=== PATIENT | female | born 1970 | race Caucasian/White ===

== ENCOUNTER → 2016-02-27 | Outpatient (CLI) | payer OTHER ==
[~2016-02-27] MED LIST: PERCOCET 325 MG1 TA5 PO; ZOLOFT50 MG
== END | disposition home or self-care (01) ==
LOC: LAB 10:09 → RAD 10:09
DX: M53.3 Sacrococcygeal disorders, not elsewhere classified (principal); M25.551 Pain in right hip; M54.5 Low back pain

== ENCOUNTER → 2016-12-17 | Outpatient (CLI) | payer OTHER | END | disposition home or self-care (01) | LOC: MAMMO 12-01 16:00 | DX: Z12.31 Encounter for screening mammogram for malignant neoplasm of breast (principal) ==

== ENCOUNTER → 2017-01-01 | Outpatient (CLI) | payer OTHER | END | disposition home or self-care (01) | LOC: MAMMO 12-30 11:00 → US 01-06 11:00 | DX: R92.8 Other abnormal and inconclusive findings on diagnostic imaging of breast (principal) ==

== ENCOUNTER 2017-06-11 09:27 | Inpatient (IN) | payer OTHER ==
[~2017-06-11] VITALS: Ht 165.1 cm; Wt 111.1 kg
[2017-06-11] VITALS (8 sets, daily range): BP systolic 101–153; BP diastolic 72–94
[~2017-06-11 09:27] MED LIST changes: -ZOLOFT50 MG; +ZOLOFT50 MG PO
[2017-06-11 09:56] LABS: BASO % 0.1 % (0.0-1.0); EOS # 0.1 10*3/uL (0.0-0.4); EOS % 0.9 % (1.0-4.0); HEMATOCRIT 44.8 % (37.0-47.0); HEMOGLOBIN 14.8 g/dl (12.0-16.0); LYMPH # 2.1 10*3/uL (1.3-4.4); LYMPH % 27.8 % (27.0-41.0); MEAN CELL VOLUME 86.5 fl (81.0-99.0); MEAN CORPUSCULAR HGB 28.6 pg (27.0-31.0); MEAN PLATELET VOLUME 9.4 fl (9.6-12.3); MONO # 0.5 10*3/uL (0.1-1.0); MONO % 6.1 % (3.0-9.0); NEUT % 64.7 % (47.0-73.0); PLATELET COUNT AUTOMATED 337 10*3/uL (130-400); RED BLOOD COUNT 5.18 10*6/uL (4.10-5.10); RED CELL DISTRI WIDTH 12.8 % (0-14.5); WHITE BLOOD COUNT 7.7 10*3/uL (4.8-10.8)
[2017-06-11 10:04] LABS: ACT PARTIAL THROMBO TIME 21.9 SECONDS (20.8-31.5); INTERNATIONAL NORM RATIO 0.9 (2.0-3.5)
[2017-06-11 10:14] LABS: ALKALINE PHOSPHATASE 74 U/L (45-117); BUN 10 mg/dl (7-24); CHLORIDE 102 mmol/L (98-107); CREATININE 0.81 mg/dL (0.55-1.02); POTASSIUM 4.6 mmol/L (3.5-5.1); SGOT/AST 15 IU/L (3-35); SGPT/ALT 21 U/L (12-78); SODIUM 136 mmol/L (136-145); TOTAL PROTEIN 7.8 gm/dL (6.4-8.2)
[2017-06-11 10:19] LABS: THYROID STIM HORMONE (HS) 1.74 uIU/ml (0.358-4.75)
== END 2017-06-11 16:00 | disposition short-term general hospital (02) | DRG 282 ==
LOC: ED 09:27 → EDHOLD 10:30 → 5E 10:56 → ICCU 14:23
PROVIDERS: Nurse Practitioner Family
DX: I21.4 Non-ST elevation (NSTEMI) myocardial infarction (principal); E66.01 Morbid (severe) obesity due to excess calories; I10 Essential (primary) hypertension; E55.9 Vitamin D deficiency, unspecified; F41.1 Generalized anxiety disorder; E78.5 Hyperlipidemia, unspecified; R73.9 Hyperglycemia, unspecified; E83.41 Hypermagnesemia; E80.6 Other disorders of bilirubin metabolism; K21.9 Gastro-esophageal reflux disease without esophagitis; Z98.51 Tubal ligation status; Z82.49 Family history of ischemic heart disease and other diseases of the circulatory system; Z88.0 Allergy status to penicillin; Z79.899 Other long term (current) drug therapy; Z83.3 Family history of diabetes mellitus

== ENCOUNTER 2018-04-06 14:28 | Inpatient (IN) | payer OTHER ==
--- NOTE | ~2018-04-06 | CON ---
[place], [place] REPORT OF CONSULTATION NAME[id number] #: [id number] ROOM: 531 DOCTOR: ANGI CAMPBELL [facility] [place],JAIME BIRTHDATE: [birth year] DOS: 04/07/2018 HISTORY OF PRESENT ILLNESS: The patient came into the emergency with precordial chest heaviness. The patient has a cardiac catheterization was done in 05/2017, elevated cardiac enzymes. No critical obstructive flow murmur is noted at that time. The patient has history of hypertension, hyperglycemia, dyslipidemia and obesity. The patient has has renal stent and tubal ligation. ALLERGIC TO PENICILLIN. PHYSICAL EXAMINATION: VITAL SIGNS: Stable. Blood pressure 150/74. GENERAL: Alert, not in any acute distress. NECK: No jugular venous distention. No carotid bruits. LUNGS: No rales. HEART: S1, S2 regular. No gallops. ABDOMEN: Soft. SKIN: Color is not diaphoretic. EXTREMITIES: No cyanosis. Troponin is unremarkable. EKG, no acute changes. DIAGNOSIS: Chest pain, evaluating for ischemic heart disease. PLAN: Stress Cardiolite to evaluate for myocardial ischemia. Continue current management. His stress echocardiogram unremarkable, we will follow the patient outpatient. If the stress Cardiolite is abnormal, may consider further evaluation. Review the stress Cardiolite and forward the results. JAIME WHITLEY MD CM:CONSTR:REPORT OF CONSULTATION 1140 04/25/18 0846 interface
--- NOTE | ~2018-04-06 | EKG ---
[place], [place] ELECTROCARDIOGRAM REPORT NAME: NAYELI MENDEZ UNIT #: [id number] ROOM: 531 DOCTOR: HARDEEP DRAFT REPORT BIRTHDATE: [birth year] [facility] Test Date: 2018-04-06 Test Time: 20:16:51 Pat Name: NAYELI MENDEZ Department: Room: 531 Gender: F Casting Chipper: Melanie Ledesma : 1970 Requested By: RICHARD VERNON PA-C Order Number: [id number] Reading MD: Arely Emmanuel Measurements Intervals [place] Rate: 64 P: 23 VT: 168 QRS: 2 QRSD: 92 T: 17 QT: 407 QTc: 420 Interpretive Statements Sinus rhythm No previous ECG available for comparison Electronically Signed On 04-08-2018 12:45:05 PST by Arely Emmanuel CM:EKGRPT:ELECTROCARDIOGRAM REPORT 15 1245 RICHARD VERNON PA-C EPIPHANY DRAFT REPORT RICHARD VERNON PA-C
--- NOTE | ~2018-04-06 | EKG ---
[place], [place] ELECTROCARDIOGRAM REPORT NAME: NAYELI MENDEZ UNIT #: [id number] ROOM: 531 DOCTOR: HARDEEP DRAFT REPORT BIRTHDATE: [birth year] [facility] Test Date: 2018-04-06 Test Time: 17:56:24 Pat Name: NAYELI MENDEZ Department: Room: 531 Gender: F Bellows Tester: Melanie Ledesma : 1970 Requested By: RICHARD VERNON PA-C Order Number: [id number] Reading MD: Arely Emmanuel Measurements Intervals [place] Rate: 53 P: 21 NH: 148 QRS: -11 QRSD: 100 T: 24 QT: 430 QTc: 404 Interpretive Statements Sinus rhythm Ventricular premature complex Baseline wander in lead(s) V1 No previous ECG available for comparison Electronically Signed On 04-08-2018 12:44:46 PST by Arely Emmanuel CM:EKGRPT:ELECTROCARDIOGRAM REPORT [id number] 1244 RICHARD VERNON PA-C EPIPHTAMICA DRAFT REPORT RICHARD VERNON PA-C
--- NOTE | ~2018-04-06 | EKG ---
[place], [place] ELECTROCARDIOGRAM REPORT NAME: NAYELI MENDEZ UNIT #: [id number] ROOM: 531 DOCTOR: HARDEEP DRAFT REPORT BIRTHDATE: [birth year] [facility] Test Date: 2018-04-06 Test Time: 14:28:18 Pat Name: NAYELI MENDEZ Department: Room: 531 Gender: F Strategic Manager: Melanie Ledesma : 1970 Requested By: RICHARD VERNON PA-C Order Number: [id number] Reading MD: Arely Emmanuel Measurements Intervals [place] Rate: 84 P: 31 MO: 154 QRS: -11 QRSD: 89 T: 18 QT: 359 QTc: 425 Interpretive Statements Sinus rhythm No previous ECG available for comparison Electronically Signed On 04-08-2018 12:43:17 PST by Arely Emmanuel CM:EKGRPT:ELECTROCARDIOGRAM REPORT 1428 1243 RICHARD VERNON PA-C EPIPHANY DRAFT REPORT RICHARD VERNON PA-C
--- NOTE | ~2018-04-06 | ST ---
[place], [place] EXERCISE STRESS TEST REPORT NAME: NAYELI MENDEZ UNIT #: [id number] ROOM: 531 DOCTOR: ANGI CAMPBELL [facility],JAIME BIRTHDATE: [birth year] DOS: 04/07/2018 STRESS CARDIOLITE The patient underwent stress test on stage 2 Ayaz 5-7 METS and up to maximal exercise heart rate of 156. No ischemia seen with EKG. X-ray is made after injecting the isotope. No complication noted. Myocardial perfusion scan to follow. Stress electrocardiogram within normal limits. The patient is minimally deconditioned. JAIME WHITLEY MD CM:STRESS:EXERCISE STRESS TEST REPORT 1133 1216 JAIME WHITLEY MD [facility]
[2018-04-06 14:34] VITALS: BP 115/75
[2018-04-06] MEDS ORDERED: Lopressor25 MG PO (14:53)
[2018-04-06] MEDS ORDERED: ASPIRIN81 M1 PO (14:53)
--- NOTE | 2018-04-06 15:12 | NUR ---
LABS JUST DRAWN AT THIS TIME.
[2018-04-06 15:28] VITALS: BP 150/74
[2018-04-06 15:33] LABS: BASO % 0.3 % (0.0-1.0); EOS # 0.1 10*3/uL (0.0-0.4); HEMATOCRIT 40.5 % (37.0-47.0); HEMOGLOBIN 13.4 g/dl (12.0-16.0); LYMPH # 2.5 10*3/uL (1.3-4.4); LYMPH % 30.8 % (27.0-41.0); MEAN CELL VOLUME 88.4 fl (81.0-99.0); MEAN CORPUSCULAR HGB 29.3 pg (27.0-31.0); MEAN CORPUSCULAR HGB CONC 33.1 g/dl (33.0-37.0); MEAN PLATELET VOLUME 9.6 fl (9.6-12.3); MONO # 0.4 10*3/uL (0.1-1.0); NEUT % 62.4 % (47.0-73.0); PLATELET COUNT AUTOMATED 322 10*3/uL (130-400); RED BLOOD COUNT 4.58 10*6/uL (4.10-5.10); RED CELL DISTRI WIDTH 12.3 % (0-14.5)
[2018-04-06 15:47] LABS: ACT PARTIAL THROMBO TIME 24.8 SECONDS (20.8-31.5); INTERNATIONAL NORM RATIO 0.9 (2.0-3.5)
[2018-04-06 15:51] LABS: ALBUMIN 3.5 gm/dl (3.1-4.5); ALKALINE PHOSPHATASE 68 U/L (45-117); BUN 10 mg/dl (7-24); CHLORIDE 105 mmol/L (98-107); CREATININE 0.69 mg/dL (0.55-1.02); SGOT/AST 12 IU/L (3-35); SGPT/ALT 19 U/L (12-78); SODIUM 138 mmol/L (136-145); TOTAL PROTEIN 6.7 gm/dL (6.4-8.2)
[2018-04-06 15:55] LABS: TROPONIN I < 0.015 ng/ml (<0.045)
[2018-04-06 16:29] VITALS: BP 129/74
[2018-04-06 17:00] VITALS: BP 133/86
--- NOTE | 2018-04-06 17:00 | NUR ---
A 47, admitted to , under the services of JACKIE Ayala DO with a diagnosis of CHEST PAIN. Chief complaint is HEAVINESS IN CHEST, TIRED.. Patient arrived via bed from ER. Monitor applied. Initial assessment completed. Vital signs taken and recorded. JACKIE AYALA DO notified of admission to the unit. Orders received. See assessment for past medical history, medications and allergies. Patient and/or family oriented to unit. [facility] visitation policy reviewed. Clothing/patient valuable form completed. JAYA PACKER
--- NOTE | 2018-04-06 17:39 | NUR ---
DR. WHITLEY ANSWERING SERVICE CALLED REGARDING CONSULT. THEY WILL PAGE HIM.
--- NOTE | 2018-04-06 18:04 | NUR ---
CALLED DR. WHITLEY ANSWERING SERVICE AGAIN FOR CONSULT. DR. WHITLEY CALLED AND WE WAS IN A RAPID RESPONSE AND WASN'T ABLE TO GET TO THE PHONE. THEY WILL REPAGE HIM.
--- NOTE | 2018-04-06 18:12 | NUR ---
MEDICATED WITH PRN PO TYLENOL FOR HEADACHE.
--- NOTE | 2018-04-06 18:40 | NUR ---
DR. WHITLEY CALLED. PT TO HAVE LEXISCAN STRESS IN AM AND ECHO'.
[2018-04-06 20:00] VITALS: BP 121/70
--- NOTE | 2018-04-06 20:53 | NUR ---
24 HR chart check completed.
--- NOTE | 2018-04-06 21:30 | NUR ---
RESTING IN BED WITH NO ACUTE DISTRESS NOTED. RESPIRATINS EASY. LUNGS DIMINISHED, CLEAR. PULSE OX 98% RA. NPO STATUS DISCUSSED AFTER MIDNIGHT FOR STRESS TEST IN AM, VOICES UNDERSTANDING. CALL LIGHT WITHIN REACH
--- NOTE | 2018-04-06 22:00 | NUR ---
PATIENT C/O HEADACHE RATING A 6 UNRELIVED BY EARLIER TYLENOL. OFFERED MOPRHINE, DECLINES. PATIENT REQUESTING "SOMETHING BETWEEN TYLENOL AND TYLENOL." STATES SHE TAKES MOTRIN [address] HERNÁNDEZ CONTACTED AND INFORMED, ALSO MADE AWARE HOME MEDS UP TO DATE BUT NOT ORDERED
[2018-04-06] MEDS ORDERED: IBU800 MG PO (22:02)
--- NOTE | 2018-04-06 22:18 | NUR ---
MEDICATED WITH MOTRIN 1 TIME DOSE FOR COMPLAINTS OF HEADACHE RATING A 6. CALL LIGHT WITHIN REACH. WILL MONITOR FOR EFFECTIVENESS
--- NOTE | 2018-04-06 23:30 | NUR ---
MEDS EFFECTIVE. SLEEPING. RESPIRATIONS EASY. CALL LIGHT WITHIN REACH
[2018-04-07] VITALS: BP 119/75
--- NOTE | 2018-04-07 00:30 | NUR ---
SLEEPING. RESPIRATIONS EASY. VSS. CALL LIGHT WITHIN REACH. NPO FOR STRESS TEST
--- NOTE | 2018-04-07 06:00 | NUR ---
AWAKE, WATCHING TV. NO DISTRESS NOTED. RESPIRATIONS EASY. HR REMAINS 50-60'S, NO C/O CHEST PAIN. CALL LIGHT WITHIN REACH. NO VOICED COMPLAINTS. NPO STATUS MAINTAINED FOR TESTING THIS AM
[2018-04-07 06:26] LABS: BASO % 0.2 % (0.0-1.0); EOS # 0.1 10*3/uL (0.0-0.4); HEMATOCRIT 40.2 % (37.0-47.0); HEMOGLOBIN 12.7 g/dl (12.0-16.0); LYMPH # 2.9 10*3/uL (1.3-4.4); LYMPH % 46.6 % (27.0-41.0); MEAN CELL VOLUME 89.1 fl (81.0-99.0); MEAN CORPUSCULAR HGB 28.2 pg (27.0-31.0); MEAN CORPUSCULAR HGB CONC 31.6 g/dl (33.0-37.0); MEAN PLATELET VOLUME 9.6 fl (9.6-12.3); MONO # 0.4 10*3/uL (0.1-1.0); MONO % 6.7 % (3.0-9.0); NEUT # 2.7 10*3/uL (2.3-7.9); NEUT % 44.2 % (47.0-73.0); PLATELET COUNT AUTOMATED 308 10*3/uL (130-400); RED BLOOD COUNT 4.51 10*6/uL (4.10-5.10); RED CELL DISTRI WIDTH 12.3 % (0-14.5); WHITE BLOOD COUNT 6.1 10*3/uL (4.8-10.8)
[2018-04-07 06:42] LABS: ALBUMIN 3.1 gm/dl (3.1-4.5); ALKALINE PHOSPHATASE 64 U/L (45-117); BUN 16 mg/dl (7-24); CHLORIDE 108 mmol/L (98-107); CHOLESTEROL 193 mg/dL (<200); CREATININE 0.59 mg/dL (0.55-1.02); FREE T4 0.93 ng/dl (0.76-1.46); HDL CHOLESTEROL 47 mg/dl (40-60); LDL CHOLESTEROL 109 mg/dL (9-159); POTASSIUM 3.9 mmol/L (3.5-5.1); SGOT/AST 11 IU/L (3-35); SGPT/ALT 18 U/L (12-78); SODIUM 141 mmol/L (136-145); TOTAL PROTEIN 6.5 gm/dL (6.4-8.2); TRIGLYCERIDES 183 mg/dl (<150); VLDL CHOLESTEROL 37 mg/dL (6-40)
[2018-04-07 07:21] VITALS: BP 127/60
[2018-04-07 07:25] VITALS: BP 112/68
--- NOTE | 2018-04-07 07:45 | NUR ---
PT RESTING IN BED. RESP-EASY AND REGULAR. NO C/O AT THIS TIME. PT IS NPO FOR STRESS TEST THIS AM. CALL LIGHT IN REACH. SEE SHIFT ASSESSMENT.
[2018-04-07 08:57] LABS: VITAMIN D, 25-HYDROXY 33.4 ng/mL (30-100)
--- NOTE | 2018-04-07 10:00 | NUR ---
INFORMED CONSENT OBTAINED FOR EXERCISE CARDIOLITE STRESS TEST WITH DR. WHITLEY. RESTING EKG NSR WITH A SUPINE HT RT OF 59 AND A BP OF 128/78. HR RT OF 84 WITH A BP OF 124/65 IN A STANDING POSITION. PT COMPLETED 6:20 OF A LOS PROTOCOL WITH COMPLETION OF 3:00 MINUTES OF STAGE II. AT 2.5 MPH AND 12% GRADE. REACHED A MAX HT RT OF 158 WHICH IS 91% OF PREDECITED MAX WITH A PEAK BP OF 148/78. TEST TERMINATED DUE TO FATIGUE. HAD NO CHEST PAIN. EXERCISE TOLERANCE FAIR. LAST RECOVERY HT RT OF 112 WITH A BP OF 130/72. AWAITING SCANNING IN STABLE CONDITION.
--- NOTE | 2018-04-07 11:00 | NUR ---
PT OFF THE FLOOR FOR STRESS TEST.
--- NOTE | 2018-04-07 11:21 | NUR ---
Processing Specialist in to talk to patient. Patient states lives at HOME with . There are 12 steps in the home. Physician: RAISA MCMILLAN Pharmacy: [facility] Home health services: NONE Patient's level of ADLs: INDEPENDENT Patient has working utilities: YES DME: NONE Follow-up physician's appointment after d/c: WILL BE MADE BY HOSPITALIST NURSE DIRECTOR ON DISCHARGE Does patient want to access PORTAL?: NO Discharge plan PT LIVES AT HOME WITH HER AND SON AND HAS NO NEEDS ON DISCHARGE. PT STATES SHE IS INDEDPENDENT IN HER CARE. PT CAN BE DISCHARGED TO HOME WHEN MEDICALLY STABLE. WILL CONTINUE TO FOLLOW.. PERI COREAS
[2018-04-07 12:00] VITALS: BP 118/71
--- NOTE | 2018-04-07 13:30 | NUR ---
RESTING IN BED. NO C/O AT THIS TIME. CALL LIGHT IN REACH.
--- NOTE | 2018-04-07 16:00 | NUR ---
RESTING IN BED. WAITING TO GO HOME PER PT. CALL LIGHT IN REACH. NO C/O AT THIS TIME.
--- NOTE | 2018-04-07 17:14 | NUR ---
Discharge instructions reviewed with patient/family. Patient receptive and verbalizes understanding. Follow-up care arranged. Written instructions given to patient/family. HEPLOCK REMOVED 2X2 APPLIED. JAYA PACKER
--- NOTE | 2018-04-07 17:15 | NUR ---
DR. WHITLEY CALLED BACK OK TO DISCHARGE AND MAKE FOLLOW UP APPOINTMENT 1 -2 WEEKS.
== END 2018-04-07 17:15 | disposition home or self-care (01) | DRG 313 ==
LOC: ED 14:28 → 5E 16:24 → EDHOLD 16:24 → 5E 16:30
PROVIDERS: Physician Assistant; Registered Nurse; ADMIT Internal Medicine
PROC: 4A02XM4 Measurement of Cardiac Total Activity, External Approach (ICD-10-PCS; principal; 2018-04-07)
PROC: 3E073KZ Introduction of Other Diagnostic Substance into Coronary Artery, Percutaneous Approach (ICD-10-PCS; principal; 2018-04-07)
DX: R07.89 Other chest pain (principal); E44.0 Moderate protein-calorie malnutrition; I10 Essential (primary) hypertension; F41.1 Generalized anxiety disorder; E78.2 Mixed hyperlipidemia; E80.6 Other disorders of bilirubin metabolism; E66.01 Morbid (severe) obesity due to excess calories; E55.9 Vitamin D deficiency, unspecified; E78.5 Hyperlipidemia, unspecified; R73.9 Hyperglycemia, unspecified; Z88.0 Allergy status to penicillin; Z82.49 Family history of ischemic heart disease and other diseases of the circulatory system; Z83.3 Family history of diabetes mellitus; I25.2 Old myocardial infarction; Z79.82 Long term (current) use of aspirin; Z68.38 Body mass index [BMI] 38.0-38.9, adult

== ENCOUNTER 2019-01-14 23:48 | Emergency (ER) | payer OTHER ==
[~2019-01-14] VITALS: Ht 160 cm; Wt 95.3 kg
[~2019-01-14 23:48] MED LIST changes: +ASPIRIN81 M1 PO; +IBU800 MG PO; +Lopressor25 MG PO
[2019-01-14] MEDS ORDERED: NITROGLYCERIN0.4 MG SL (23:53)
[2019-01-14] MEDS ORDERED: PRAVASTATIN SOD40 MG PO (23:53)
[2019-01-14 23:54] VITALS: BP 133/86
[2019-01-15] MEDS ORDERED: Percocet 325 MG1 TAB PO (01:25)
[2019-01-15] MEDS ORDERED: Motrin,Rufen800 MG PO (01:25)
== END 2019-01-15 01:46 | disposition home or self-care (01) ==
LOC: ED 23:48
DX: S20.211A Contusion of right front wall of thorax, initial encounter (principal); I10 Essential (primary) hypertension; E66.01 Morbid (severe) obesity due to excess calories; E78.5 Hyperlipidemia, unspecified; I25.2 Old myocardial infarction; Z88.0 Allergy status to penicillin; Z79.899 Other long term (current) drug therapy; Z79.82 Long term (current) use of aspirin; W22.8XXA Striking against or struck by other objects, initial encounter; Y93.89 Activity, other specified; Y92.89 Other specified places as the place of occurrence of the external cause; Y99.8 Other external cause status

== ENCOUNTER → 2019-04-23 | Outpatient (CLI) | payer OTHER ==
[~2019-04-23] MED LIST changes: +Motrin,Rufen800 MG PO; +NITROGLYCERIN0.4 MG SL; +PRAVASTATIN SOD40 MG PO; +Percocet 325 MG1 TAB PO
[2019-04-23 09:54] LABS: BASO % 0.3 % (0.0-1.0); EOS # 0.1 10*3/uL (0.0-0.4); EOS % 1.5 % (1.0-4.0); HEMATOCRIT 42.4 % (37.0-47.0); HEMOGLOBIN 13.9 g/dl (12.0-16.0); LYMPH # 2.7 10*3/uL (1.3-4.4); MEAN CELL VOLUME 87.6 fl (81.0-99.0); MEAN CORPUSCULAR HGB 28.7 pg (27.0-31.0); MEAN CORPUSCULAR HGB CONC 32.8 g/dl (33.0-37.0); MEAN PLATELET VOLUME 9.4 fl (9.6-12.3); MONO # 0.5 10*3/uL (0.1-1.0); MONO % 5.7 % (3.0-9.0); NEUT # 4.6 10*3/uL (2.3-7.9); NEUT % 58.1 % (47.0-73.0); PLATELET COUNT AUTOMATED 347 10*3/uL (130-400); RED BLOOD COUNT 4.84 10*6/uL (4.10-5.10); RED CELL DISTRI WIDTH 12.6 % (0-14.5); WHITE BLOOD COUNT 7.9 10*3/uL (4.8-10.8)
[2019-04-23 10:22] LABS: BUN 13 mg/dl (7-24); CHLORIDE 109 mmol/L (98-107); CHOLESTEROL 189 mg/dL (<200); CREATININE 0.94 mg/dL (0.55-1.02); HDL CHOLESTEROL 62 mg/dl (40-60); LDL CHOLESTEROL 102 mg/dL (9-159); POTASSIUM 4.1 mmol/L (3.5-5.1); SGOT/AST 11 IU/L (3-35); SGPT/ALT 18 U/L (12-78); SODIUM 140 mmol/L (136-145); TRIGLYCERIDES 123 mg/dl (<150); VLDL CHOLESTEROL 25 mg/dL (6-40)
== END | disposition home or self-care (01) ==
LOC: LAB 09:23
PROVIDERS: Internal Medicine Cardiovascular Disease
DX: E78.5 Hyperlipidemia, unspecified (principal)

== ENCOUNTER 2021-03-26 08:47 | Emergency (ER) | payer OTHER ==
[~2021-03-26] VITALS: Wt 99.8 kg
[2021-03-26 08:57] VITALS: BP 129/90
[2021-03-26 09:27] LABS: BASO % 0.2 % (0.0-1.0); EOS # 0.1 10*3/uL (0.0-0.4); EOS % 1.9 % (1.0-4.0); HEMATOCRIT 43.8 % (37.0-47.0); LYMPH # 1.9 10*3/uL (1.3-4.4); LYMPH % 31.3 % (27.0-41.0); MEAN CELL VOLUME 87.3 fl (81.0-99.0); MEAN CORPUSCULAR HGB 28.5 pg (27.0-31.0); MEAN CORPUSCULAR HGB CONC 32.6 g/dl (33.0-37.0); MEAN PLATELET VOLUME 9.2 fl (9.6-12.3); MONO # 0.3 10*3/uL (0.1-1.0); MONO % 5.6 % (3.0-9.0); NEUT # 3.6 10*3/uL (2.3-7.9); NEUT % 60.8 % (47.0-73.0); PLATELET COUNT AUTOMATED 302 10*3/uL (130-400); RED BLOOD COUNT 5.02 10*6/uL (4.10-5.10); RED CELL DISTRI WIDTH 12.4 % (0-14.5); WHITE BLOOD COUNT 5.9 10*3/uL (4.8-10.8)
[2021-03-26 09:43] LABS: ALBUMIN 3.8 gm/dl (3.1-4.5); ALKALINE PHOSPHATASE 73 U/L (45-117); BUN 12 mg/dl (7-24); CHLORIDE 104 mmol/L (98-107); CREATININE 0.77 mg/dL (0.55-1.02); LIPASE 98 U/L (73-393); POTASSIUM 4.4 mmol/L (3.5-5.1); SGOT/AST 11 IU/L (3-35); SGPT/ALT 24 U/L (12-78); SODIUM 137 mmol/L (136-145); TOTAL PROTEIN 7.5 gm/dL (6.4-8.2)
[2021-03-26 10:52] LABS: BILIRUBIN Negative (Negative); BLOOD Negative (Negative); CLARITY Cloudy (Clear); COLOR Yellow (Yellow); GLUCOSE Negative (Negative); KETONE Negative (Negative); LEUKO ESTERASE 1+ (Negative); NITRITE Negative (Negative); PH 5.5 (4.5-8.0); UROBILINOGEN 0.2 E.U./dl (0.0-1.0)
[2021-03-26 11:07] LABS: MUCOUS 1+
[2021-03-26 11:08] LABS: BACTERIA 1+; EPITHELIAL CELLS 16-20
[2021-03-26] MEDS ORDERED: HYDROCODONE-AC1 EAC1 PO (14:10)
[2021-03-26] MEDS ORDERED: CYCLOBENZAPRINE10 MG PO (14:10)
[2021-03-26] MEDS ORDERED: ZOFRAN4 MG PO (14:10)
[2021-03-26] MEDS ORDERED: PREDNISONE50 MG PO (14:10)
== END 2021-03-26 14:22 | disposition home or self-care (01) ==
LOC: ED 08:47
PROVIDERS: Family Medicine
DX: K80.20 Calculus of gallbladder without cholecystitis without obstruction (principal); M54.9 Dorsalgia, unspecified; Z88.0 Allergy status to penicillin; Z79.899 Other long term (current) drug therapy; Z79.82 Long term (current) use of aspirin; Z98.51 Tubal ligation status; Z98.890 Other specified postprocedural states

== ENCOUNTER → 2022-02-11 | Outpatient (CLI) | payer OTHER ==
[~2022-02-11] MED LIST changes: +CYCLOBENZAPRINE10 MG PO; +HYDROCODONE-AC1 EAC1 PO; +PREDNISONE50 MG PO; +ZOFRAN4 MG PO
== END | disposition home or self-care (01) ==
LOC: MAMMO 11:24
PROVIDERS: ATTEND Family Medicine
DX: Z12.31 Encounter for screening mammogram for malignant neoplasm of breast (principal)

== ENCOUNTER → 2022-11-09 | Outpatient (CLI) | payer OTHER ==
[2022-11-09 17:08] LABS: FREE T4 0.9 ng/dl (0.89-1.76)
== END | disposition home or self-care (01) ==
LOC: LAB 16:22
PROVIDERS: ATTEND Registered Nurse
DX: R79.89 Other specified abnormal findings of blood chemistry (principal)

== ENCOUNTER → 2023-07-01 | Outpatient (CLI) | payer OTHER | END | disposition home or self-care (01) | LOC: RAD 11:20 | PROVIDERS: ATTEND Family Medicine | DX: R07.82 Intercostal pain (principal) ==

== ENCOUNTER → 2024-06-29 | Outpatient (CLI) | payer OTHER ==
[~2024-06-29] MED LIST changes: +Regadenoson 0.4 MG/5 ML SYR IV ONE; +Technetium Tc 99M Tetrofosmi 0.23 MG KIT IJ SCH
== END | disposition home or self-care (01) ==
LOC: CARD 02:21
PROVIDERS: ATTEND Internal Medicine
DX: Z12.31 Encounter for screening mammogram for malignant neoplasm of breast (principal); I25.2 Old myocardial infarction; R07.89 Other chest pain; N64.89 Other specified disorders of breast; N63.20 Unspecified lump in the left breast, unspecified quadrant; N63.10 Unspecified lump in the right breast, unspecified quadrant